=== PATIENT | female | born 1995 | race Caucasian/White ===

== ENCOUNTER 2018-05-09 23:24 | Inpatient (IN) | payer OTHER ==
[2018-05-10] MEDS ORDERED: Diphenoxylate HCl/Atropine Tablet PO PRN (00:03)
[2018-05-10] MEDS ORDERED: Carboprost 250 MCG/ML AMP IM PRN (00:03)
[2018-05-10] MEDS ORDERED: Butorphanol Tartrate 1 MG/ML VIAL SLOW IVP PRN (00:03)
[2018-05-10] MEDS ORDERED: Ondansetron PF 4 MG/2 ML Vial IVP PRN ×2 (00:03→09:00)
[2018-05-10] MEDS ORDERED: NS w/ Oxytocin 10 units 500 ML IV SCH (00:03)
[2018-05-10] MEDS ORDERED: Methylergonovine 0.2 MG/ML VIAL IM PRN (00:03)
[2018-05-10] MEDS ORDERED: Acetaminophen 500 MG TAB PO PRN (00:03)
[2018-05-10] MEDS ORDERED: Zolpidem Tartrate 5 MG TAB PO PRN (00:03)
[2018-05-10] MEDS ORDERED: NS / Oxytocin 40 units/1000ml 1,000 ML IV PRN (00:03)
[2018-05-10] MEDS ORDERED: Lidocaine 1% (PF) 30 ML VIAL SC PRN (00:03)
[2018-05-10] MEDS ORDERED: Promethazine HCl 25 MG/ML VIAL IM PRN ×2 (00:03→09:00)
[2018-05-10] MEDS ORDERED: Misoprostol 200 MCG TAB PR PRN (00:03)
[2018-05-10] MEDS ORDERED: Ibuprofen 800 MG TAB PO PRN (00:03)
[2018-05-10] MEDS ORDERED: HYDROcodone/Acetaminophen 5/325 mg Tablet PO PRN (00:03)
[2018-05-10 00:15] VITALS: BMI 32.8
[2018-05-10] MEDS: Lactated Ringer's 1,000 ML IV SCH ×4 (00:22→16:48)
[2018-05-10 00:46] LABS: Hemoglobin 10.2 g/dL (12.0-16.0); Mean Corpuscular HGB CONC 31.7 g/dL (32.0-36.0); Mean Corpuscular Hemoglobin 24.8 pg (27.0-31.0); Mean Corpuscular Volume 78.2 fL (78.0-98.0); Mean Platelet Volume 7.3 fL (7.4-10.4); Platelet Count 300 thou/uL (130-400); Red Blood Cell (RBC) Count 4.12 mill/uL (4.20-5.40)
[2018-05-10] MEDS: Misoprostol 100 MCG TAB VAG SCH ×5 (00:46→17:19)
[2018-05-10 01:25] LABS: HBSAg Index 0.17 S/CO (0-0.99); Hep B Surf Ag Non-Reactive S/CO (NonReactive)
[2018-05-10 01:26] LABS: Syphilis Antibody Nonreactive (Nonreactive); Syphilis Antibody Index 0.02 S/CO (<1.00 Non-Reactive)
--- NOTE | 2018-05-10 07:47 | PDOC.LDHP ---
Labor and Delivery H&P Chief complaint: scheduled induction HPI: 23yo at 39w6d by LMP for elective IOL, s/p cytotec 25mcg last night. Current gestational age (weeks): 39 Due date: 05/11/18 Dating criteria: last menstrual period Grav: 2 Para: 0 Current complications: none Abnormal US findings: No Past Medical History: denies Current medications: pre- vitamins Previous surgical history: none Allergies/Adverse Reactions: Allergies Allergy/AdvReac Type Severity Reaction Status Date / Time No Known Allergies Allergy Verified 05/10/18 00:06 Social history: none - Physical Exam Vital signs reviewed and normal: yes General: NAD Heart: RRR Lungs: CTAB Abdomen: gravid Extremeties: no edema FHT: category 1 - Vaginal Exam cm dilated: 3 Effacement: 50% Station: -2 (arom clear) - OB Labs Blood type: O RH: positive Antibody Screen: negative HIV: negative RPR: negative HEPSAg: negative 1 hour GCT: negative GBS: negative Urine drug screen: negative Rubella: immune - Assessment L&D Assessment: elective induction at term - Plan Plan: admit to L&D, cervical ripening, labor augmentation if indicated, informed consent obtained, anesthesia consult for pain management
[2018-05-10] MEDS ORDERED: Fentanyl 4 mcg/Bup 0.1% Cadd 100 ML ONE ×3 (08:45→20:35)
[2018-05-10] MEDS ORDERED: Acetaminophen 325 MG TAB PO PRN (09:00)
[2018-05-10] MEDS ORDERED: diphenhydrAMINE 50 MG/ML VIAL IVP PRN (09:00)
[2018-05-10] MEDS ORDERED: Eucerin (Mineral Oil/Petrolatum,White) 30 gm Jar TOP PRN (09:00)
[2018-05-10] MEDS ORDERED: Lactated Ringer's 500 ML IV PRN (09:00)
[2018-05-10] MEDS ORDERED: Naloxone HCl 0.4 mg/ml Vial IVP PRN ×2 (09:00)
[2018-05-10] MEDS ORDERED: ePHEDrine/0.9% NaCl/PF SYRINGE 50 mg/10 ml SLOW IVP PRN (09:00)
[2018-05-10] MEDS ORDERED: Fentanyl 4 mcg/Bupivacaine 0.1% Cassette 100 ML EPIDURAL SCH (09:00)
[2018-05-10] MEDS ORDERED: Communication Order-Pharmacy FS SCH (09:00)
--- NOTE | 2018-05-10 14:27 | PDOC.LDPN ---
Labor & Delivery Progress Note - Subjective Subjective: comfortable - Objective Vital signs reviewed and normal: yes General: NAD Uterine fundus: non tender Dilation: 4 Effacement: 75% Station: -1 FHT: category 2 [place] 7 contractions every: 3-4min Resuscitative measures: maternal IV fluids, maternal position change, other ( pitocin off) Plan: continue plan of care -: FHT resolved after resuscitative measures, restart pitocin
--- NOTE | 2018-05-10 17:22 | PDOC.LDPN ---
Labor & Delivery Progress Note - Subjective Subjective: comfortable - Objective Vital signs reviewed and normal: yes General: NAD Uterine fundus: non tender Dilation: 7 Effacement: 90% Station: -1 FHT: category 2, late decelerations [place] contractions every: 2-4min Resuscitative measures: maternal oxygen, maternal IV fluids, maternal position change, other (pitocin off) Plan: continue plan of care, labor augmentation -: FHT now reassuring after resuscitative measures, will restart pitocin 1x1, pt making cervical change will cont induction as long as cervix is changing and fht are able to be resuscitated.
[2018-05-10] MEDS ORDERED: Bicitra 30 ML UDCUP ONE (23:31)
[2018-05-10] MEDS ORDERED: CEFAZOLIN/Water 2 GM/20 ML SYRINGE ONE (23:31)
[2018-05-10] MEDS ORDERED: Azithromycin 500 MG in Sodium Chloride 0.9% 250 ML 250 ML IVPB SCH (23:45)
[2018-05-10] MEDS ORDERED: Bicitra 30 ML UDCUP PO SCH (23:45)
[2018-05-10] MEDS ORDERED: CEFAZOLIN/Water 2 GM/20 ML SYRINGE SLOW IVP SCH (23:45)
[2018-05-10] MEDS ORDERED: Lidocaine 2% 10 ML INJ ONE (23:46)
[2018-05-10] MEDS ORDERED: Oxytocin 10 UNITS/ML VIAL ONE (23:46)
[2018-05-10] MEDS ORDERED: Ondansetron PF 4 MG/2 ML Vial ONE (23:46)
[2018-05-10] MEDS ORDERED: Morphine PF 1 MG/ML SYR ONE (23:46)
--- NOTE | 2018-05-10 23:56 | PDOC.OPDEL ---
OB Operative/Delivery Note Delivery Dr/Surgeon: Rogelio Assist: White Pre-Delivery Diagnosis: non-reassuring tracing Procedure/Post Delivery Dx: primary low transverse CS Weeks gestation: 40 Anesthesia: epidural - Findings A Sex: female - 1 min: 9 - 5 min: 9 - Additional Findings/Plan Placenta delivered: spontaneous findings: low transverse hysterotomy without extension, normal uterus, normal tubes, normal ovaries Estimated blood loss: 500 qbl pending Compilations/Other Findings: funic presentation Post delivery plan: routine recovery
[2018-05-11] MEDS ORDERED: HYDROmorphone 2 MG/ML VIAL SLOW IVP PRN (00:16)
[2018-05-11] MEDS ORDERED: Promethazine HCl 25 MG/ML VIAL IM PRN (00:16)
[2018-05-11] MEDS ORDERED: Eucerin (Mineral Oil/Petrolatum,White) 30 gm Jar TOP PRN (00:16)
[2018-05-11] MEDS ORDERED: L&D-Morphine 4 MG/ML VIAL SLOW IVP PRN (00:16)
[2018-05-11] MEDS ORDERED: Ondansetron HCl/PF 4 MG/2 ML Vial IVP PRN (00:16)
[2018-05-11] MEDS ORDERED: Naloxone HCl 0.4 mg/ml Vial IV PRN (00:16)
[2018-05-11] MEDS ORDERED: Naloxone HCl 0.4 mg/ml Vial IVP PRN ×2 (00:16)
[2018-05-11] MEDS ORDERED: Meperidine HCl/PF 25 MG/ML VIAL SLOW IVP PRN (00:16)
[2018-05-11] MEDS ORDERED: Ondansetron PF 4 MG/2 ML Vial IVP PRN (00:16)
[2018-05-11] MEDS ORDERED: diphenhydrAMINE 50 MG/ML VIAL IVP PRN (00:16)
[2018-05-11] MEDS ORDERED: Ketorolac Tromethamine 30 MG/ML VIAL IVP SCH (00:30)
[2018-05-11] MEDS ORDERED: Communication Order-Pharmacy FS SCH (00:30)
[2018-05-11] MEDS ORDERED: Oxytocin 10 UNITS/ML VIAL ONE (00:34)
--- NOTE | 2018-05-11 00:43 | PDOC.EVN ---
Event Note - Event Note Event Note: CS Assist note: Asked to assist Dr Mercado on Mrs Freire's primary CS for NR-FHRT. I scrubbed and particiapted as sales assistants and salespersons during this primary LTCS via pfannenstiel incision. No complications noted. Skin sutured. female with apgars 9/9. Time of was 0020
[2018-05-11 00:44] LABS: Actual Bicarbonate (HCO3v) 22 mEq/L (22-28); Base Excess -3.8 mEq/L (-2.0 to +3.0); pH (Cord, venous) 7.35 (7.32-7.43)
[2018-05-11] MEDS: Misoprostol 100 MCG TAB VAG SCH ×2 (01:54→12:20)
[2018-05-11] MEDS ORDERED: Ketorolac Tromethamine 30 MG/ML VIAL ONE (02:09)
[2018-05-11] MEDS: Ketorolac Tromethamine 30 MG/ML VIAL IVP PRN ×2 (02:10→08:34)
--- NOTE | 2018-05-11 02:31 | OP ---
DATE OF OPERATION: 05/11/2018 PREOPERATIVE DIAGNOSES: 1. Intrauterine at 40 weeks and 0 days. 2. Elective induction. 3. Nonreassuring heart tones. POSTOPERATIVE DIAGNOSES: 1. Intrauterine at 40 weeks and 0 days. 2. Elective induction. 3. Nonreassuring heart tones. PROCEDURE: Primary low transverse section via Pfannenstiel skin incision. ANESTHESIA: Epidural. ATTENDING SURGEON: Keena Mercado M.D. EDUCATION CONSULTANT SURGEON: Flakito White M.D. ESTIMATED BLOOD LOSS: 500 mL. QUANTITATIVE BLOOD LOSS: Pending. INTRAVENOUS FLUIDS: One-liter crystalloid. URINE OUTPUT: 100 mL of clear urine. COMPLICATIONS: None. DRAINS: Vargas catheter. PATHOLOGY: None. FINDINGS: Female , OP presentation with a funic cord wrapped around the head. Apgars are 9 an d 9, weight is pending. Hysterotomy without extension. Normal uterus, ovaries, and tubes bilaterall y. OPERATIVE INDICATIONS: A 23-year-old G2, P0 presented at 39 weeks and 6 days for an elective inducti on of labor. She received Cytotec ripening followed by Pitocin and AROM. The patient began having l ate decelerations intermittently requiring the Pitocin to be turned off and resuscitative measures to be performed, which always did resolve starting around noon, the day of induction. The Pitocin was never able to be increased to an adequate contraction pattern level and had repeated episodes of recu rrent late. The patient slowly progressed and this was allowed secondary to low-dose Pitocin being r equired for reassurance; however, the patient was examined at approximately midnight and was fo und to have a significant caput and molding and the cord was not palpable at that time, but secondary to OP presentation the patient progressed to 8 cm, 90, and -1 station. The baby never came down and secondary to the Pitocin being turned off for decelerations and the primary was called. OPERATIVE TECHNIQUE: The patient was taken to the operating room where epidural anesthesia was found to be adequate. Patient was prepped and draped in the sterile fashion in dorsal supine position wit h leftward tilt. After ensuring adequacy of anesthesia, Pfannenstiel skin incision was made and suarez ied down to the underlying subcutaneous tissue with the knife. The fascia was nicked in the midline with the knife and carried laterally with the Covington scissors. The superior aspect of the fascia was t ented with 2 Kochers and dissected off the rectus bluntly. The inferior aspect of the fascia was ten charlie with 2 Kochers and dissected off the rectus with the Covington scissors. The peritoneum was bluntly e ntered into and manually retracted. The Ej O retractor was placed. The vesicouterine peritoneum was identified and a bladder flap was created with the Metzenbaums. The lower uterine segment was i ncised in a transverse fashion and extended with the Licona maneuver. The infant's head was brought to the hysterotomy and immediately upon grabbing the 's head. A cord fell down into my head that was wrapped around the lateral outside part of the cranium. Thus fetus was delivered atraumat ically. The cord was clamped and the fetus was vigorous handed to awaiting jesika team. The cord gas a nd cord blood were obtained. The placenta was allowed to spontaneously deliver. The uterus was exte riorized, cleared of all clots and debris and the posterior cul-de-sac was lapped out. The uterus wa s placed back into the abdomen and the hysterotomy was repaired with a #1 Monocryl in a running locki ng fashion. A second horizontal imbricating layer of #1 Monocryl was placed. Hemostasis was noted t o be excellent. Irrigation of the pelvis was performed. The Ej O retractor was removed out of t he abdomen and the rectus muscles were examined and noted to be hemostatic. The peritoneum was then placed over the rectus muscles, and the fascia was reapproximated with a #1 PDS x2 sutures with excel lent reapproximation. The subcutaneous tissue was irrigated and cauterized of any bleeders and reapp roximated with 2-0 plain gut in a running fashion. The skin was closed with 4-0 Monocryl in a subcut icular fashion. Dermabond was applied. Patient tolerated procedure well. Sponge and needle counts were correct x2. Patient was sent to recovery room in stable condition. Patient received Ancef 2 gr ams prior to incision and azithromycin 500 mg after cord was clamped.
[2018-05-11] MEDS ORDERED: Lanolin Ointment 7 GM TUBE TOP PRN (03:50)
[2018-05-11] MEDS ORDERED: HYDROcodone/Acetaminophen 5/325 mg Tablet PO PRN (03:50)
[2018-05-11] MEDS ORDERED: diphenhydrAMINE 25 MG CAP PO PRN (03:50)
[2018-05-11] MEDS: Ibuprofen 800 MG TAB PO SCH ×3 (07:09→21:13)
[2018-05-11] MEDS: Lactated Ringer's 1,000 ML IV SCH (07:41)
--- NOTE | 2018-05-11 08:01 | PDOC.PP ---
Post Progress Note Post Day #: 0 PO intake tolerated: yes Flatus: no Ambulation: no Vital Signs (12 hours) Temp Pulse Resp BP Pulse Ox 05/11/18 06:00 98.0 F 68 18 98/55 L 05/11/18 04:55 98.0 F 68 18 104/59 L 05/11/18 03:40 97 05/11/18 03:35 98.4 F 66 18 109/56 L 97 Weight Weight 185 lb - Physical Examination General: NAD Cardiovascular: RRR Respiratory: non-labored breathing Abdominal: no distention, appropriately TTP Neurological: no gross focal deficits Psychiatric: normal affect Result Diagrams: 05/10/18 00:26 Additional Labs: Post Labs Blood Type O POSITIVE 05/10/18 00:26 Hep Bs Antigen Non-Reactive S/CO (NonReactive) 05/10/18 00:26
[2018-05-11] MEDS: Prenatal Vitamin 1 TAB PO SCH (08:35)
[2018-05-11] MEDS: Docusate Calcium (SURFAK) 240 MG CAP PO SCH ×2 (08:36→21:13)
[2018-05-11] MEDS: Ferrous Sulfate 325 MG TAB PO SCH ×2 (08:36→17:07)
[2018-05-11] MEDS: Simethicone Chewable 80 MG TAB PO PRN (08:36)
[2018-05-11] MEDS ORDERED: Adacel (T-DAP) 0.5 ML VIAL IM ONE (09:00)
[2018-05-11] MEDS: HYDROcodone/Acetaminophen 5/325 mg Tablet PO PRN (13:12)
[2018-05-11] MEDS ORDERED: Lidocaine 2% MPF 10 ML AMP (For Epidural Use) ONE (14:21)
[2018-05-11] MEDS ORDERED: Ondansetron PF 4 MG/2 ML Vial ONE (14:21)
[2018-05-12] MEDS: HYDROcodone/Acetaminophen 5/325 mg Tablet PO PRN ×5 (00:19→21:42)
[2018-05-12 06:02] LABS: Hemoglobin 8.8 g/dL (12.0-16.0); Mean Corpuscular HGB CONC 32.3 g/dL (32.0-36.0); Mean Corpuscular Hemoglobin 25.4 pg (27.0-31.0); Mean Corpuscular Volume 78.7 fL (78.0-98.0); Mean Platelet Volume 7.3 fL (7.4-10.4); Platelet Count 258 thou/uL (130-400); RBC Distribution Width 13.9 % (11.5-14.5); Red Blood Cell (RBC) Count 3.46 mill/uL (4.20-5.40); White Blood Cell (WBC) Count 9.6 thou/uL (4.8-10.8)
[2018-05-12] MEDS: Ibuprofen 800 MG TAB PO SCH ×3 (06:18→21:42)
[2018-05-12] MEDS: Ferrous Sulfate 325 MG TAB PO SCH ×2 (08:11→16:57)
[2018-05-12] MEDS: Prenatal Vitamin 1 TAB PO SCH (08:12)
[2018-05-12] MEDS: Docusate Calcium (SURFAK) 240 MG CAP PO SCH ×2 (08:12→21:42)
--- NOTE | 2018-05-12 09:03 | PDOC.PP ---
Post Progress Note Post Day #: POD #1 Subjective: Patient doing well. No significant overnight events. Patient states she is having pain around incision, particularly when ambulating. She has been up to the bathroom multiple times. Patient is tolerating PO. She states her lochia is a little less than a period. PO intake tolerated: yes Flatus: yes Ambulation: yes Vital Signs (12 hours) Temp Pulse Resp BP BP Pulse Ox 05/12/18 07:58 97.8 F 70 20 114/61 100 05/12/18 04:08 97.7 F 79 20 98/55 L 05/11/18 23:35 97.7 F 71 18 102/51 L 98 05/11/18 22:00 18 Weight Weight 83.915 kg - Physical Examination General: NAD Respiratory: non-labored breathing Abdominal: lochia (a little less than a period), no distention, appropriately TTP Fundus firm & at: Just below umbilicus Extremities: negative homans (B) Skin: CS incision dry & intact, no rash Neurological: no gross focal deficits Psychiatric: A&Ox3, normal affect Result Diagrams: 05/12/18 05:24 Additional Labs: Post Labs Blood Type O POSITIVE 05/10/18 00:26 Hep Bs Antigen Non-Reactive S/CO (NonReactive) 05/10/18 00:26 (1) Delivery by section of full-term infant Code(s): O82 - ENCOUNTER FOR DELIVERY WITHOUT INDICATION Status: Acute Comment: 23 year old at 39.6 wks delivered TAGA F infant at 00:20 on 05/11/2018 via pLTCS for NRFHT's. Apgars 9/9. - POD #1 - Routine PP care - Incision clean, dry and intact - Pain well controlled; will order abdominal binder to assist with pain when ambulating - Plan for d/c home tomorrow <Irene Morrow - Last Filed: 05/12/18 09:08> Vital Signs (12 hours) Temp Pulse Resp BP BP Pulse Ox 05/12/18 07:58 97.8 F 70 20 114/61 100 05/12/18 04:08 97.7 F 79 20 98/55 L 05/11/18 23:35 97.7 F 71 18 102/51 L 98 05/11/18 22:00 18 Weight Weight 185 lb Result Diagrams: 05/12/18 05:24 Additional Labs: Post Labs Blood Type O POSITIVE 05/10/18 00:26 Hep Bs Antigen Non-Reactive S/CO (NonReactive) 05/10/18 00:26 - Assessment/Plan Faculty Note: POD 1. No evidence metritis or post op issue. Agree with assessment, seen and examined. <Flakito White - Last Filed: 05/12/18 09:43>
[2018-05-12] MEDS: Simethicone Chewable 80 MG TAB PO PRN (13:40)
[2018-05-13] MEDS: Simethicone Chewable 80 MG TAB PO PRN (05:43)
[2018-05-13] MEDS: Ibuprofen 800 MG TAB PO SCH (05:43)
--- NOTE | 2018-05-13 06:12 | PDOC.PP ---
Post Progress Note Post Day #: 2 Subjective: Patient doing well. No significant overnight events. Still complaining of pain along incision, particularly when ambulating. PO intake tolerated: yes Flatus: yes Ambulation: yes Vital Signs (12 hours) Temp Pulse Resp BP Pulse Ox 05/12/18 23:58 98.5 F 71 20 106/55 L 98 05/12/18 20:00 98.5 F 71 20 105/64 98 Weight Weight 83.915 kg - Physical Examination General: NAD Cardiovascular: RRR Respiratory: non-labored breathing Abdominal: lochia (less than a period), no distention, appropriately TTP Fundus firm & at: at umbilicus Skin: CS incision dry & intact, no rash Neurological: no gross focal deficits Psychiatric: A&Ox3, normal affect Result Diagrams: 05/12/18 05:24 Additional Labs: Post Labs Blood Type O POSITIVE 05/10/18 00:26 Hep Bs Antigen Non-Reactive S/CO (NonReactive) 05/10/18 00:26 (1) Delivery by section of full-term infant Code(s): O82 - ENCOUNTER FOR DELIVERY WITHOUT INDICATION Status: Acute Comment: 23 year old at 39.6 wks delivered TAGA F at 00:20 on 05/11/2018 via pLTCS for NRFHT's. Apgars 9/9. - POD #2 - Routine PP care - Incision clean, dry and intact - Pain well controlled; will send home with abdominal binder and pain medication - D/C home today with follow up at [facility] in 2 weeks <Irene Morrow - Last Filed: 05/13/18 06:10> Vital Signs (12 hours) Temp Pulse Resp BP Pulse Ox 05/12/18 23:58 98.5 F 71 20 106/55 L 98 05/12/18 20:00 98.5 F 71 20 105/64 98 Weight Weight 185 lb Result Diagrams: 05/12/18 05:24 Additional Labs: Post Labs Blood Type O POSITIVE 05/10/18 00:26 Hep Bs Antigen Non-Reactive S/CO (NonReactive) 05/10/18 00:26 - Assessment/Plan Faculty...Patient seen and examined. OK for DC home today as patient desires DC to home. Yolis po well. <Flakito White - Last Filed: 05/13/18 06:23>
--- NOTE | 2018-05-13 07:06 | PDOC.EVN ---
Event Note - Event Note Event Note: DISCHARGE NOTE S/P primary LTCS Patient s/p primary CS and cleared for discharge today, 05/13/18, which is POD2. Yolis po and no evidence of ileus. Vitals stable, and afebrile. Incision sutured and C/D/I/ Home with limited tylenol #3 prn and motrin.
[2018-05-13 08:39] VITALS: BP 105/60; TEMP 97.7
[2018-05-13] MEDS: Ferrous Sulfate 325 MG TAB PO SCH (09:21)
[2018-05-13] MEDS: Docusate Calcium (SURFAK) 240 MG CAP PO SCH (09:21)
[2018-05-13] MEDS: Prenatal Vitamin 1 TAB PO SCH (09:21)
[2018-05-13] MEDS: HYDROcodone/Acetaminophen 5/325 mg Tablet PO PRN ×2 (09:24→13:17)
== END 2018-05-13 13:35 | disposition home or self-care (01) | DRG 788 ==
LOC: L&D 23:24 → 3SW 05-11 03:39
PROVIDERS: ADMIT Student in an Organized Health Care Education/Training Program; ATTEND Student in an Organized Health Care Education/Training Program
PROC: 3E0P7VZ Introduction of Hormone into Female Reproductive, Via Natural or Artificial Opening (ICD-10-PCS; 2018-05-09)
PROC: 10D00Z1 Extraction of Products of Conception, Low, Open Approach (ICD-10-PCS; principal; 2018-05-11)
DX: O76 Abnormality in fetal heart rate and rhythm complicating labor and delivery (principal); Z3A.40 40 weeks gestation of pregnancy; Z37.0 Single live birth
CPT/HCPCS: 36415; 51702; 82805; 85027; 86780; 86850; 86900; 86901; 87340; J0456; J1885; J2001; J2274; J2405; J2590; J7050